=== PATIENT | female | born 2000 | race Caucasian/White ===

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

== ENCOUNTER 2019-03-25 01:22 | Emergency (ER) | payer OTHER, BC ==
[2019-03-25] MEDS ORDERED: Ketorolac 60 MG/2 ML SDV IM ONE (02:10)
--- NOTE | 2019-03-25 02:15 | EDM.PDOC ---
ED HPI GENERAL MEDICAL PROBLEM - General Chief Complaint: Lower Extremity Injury/Pain Stated Complaint: hip Time Seen by Provider: 03/25/19 02:00 Source of Information: Reports: Patient, RN History Limitations: Reports: No Limitations - History of Present Illness INITIAL COMMENTS - FREE TEXT/NARRATIVE: 19 yo female presents from work due to onset of R hip area pain that began about 1930h Monday evening while trying to move a tank that weighed about 70#. She took ibuprofen 400 mg at the time of the injury. Has increased pain with weight transfer to the R leg while walking. Reports a past hx of bursitis of the R hip. Does not have a local provider. 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, NSAIDS R hip Pain Score (Numeric/FACES): 6 - Related Data Allergies Allergy/AdvReac Type Severity Reaction Status Date / Time No Known Allergies Allergy Verified 03/25/19 01:49 Home Meds: Home Meds Levonorgestrel-Ethin Estradiol [Falmina-28 Tablet] 1 each PO ASDIRECTED [History] Past Medical History - Past Health History Medical/Surgical History: Denies Medical/Surgical History Psychiatric History: Reports: Anxiety, Depression Endocrine/Metabolic History: Reports: Obesity/BMI 30+ - Past Surgical History HEENT Surgical History: Reports: Adenoidectomy, Myringotomy w Tube(s), Oral Surgery, Tonsillectomy Musculoskeletal Surgical History: Reports: ORIF Other Musculoskeletal Surgeries/Procedures:: bone spur removed R foot Social & Family History - Family History Family Medical History: Noncontributory - Tobacco Use Smoking Status *Q: Former Smoker Used Tobacco, but Quit: Yes Month/Year Tobacco Last Used: 2016 - Caffeine Use Caffeine Use: Reports: Coffee, Energy Drinks - Recreational Drug Use Recreational Drug Use: No Review of Systems - Review of Systems Review Of Systems: ROS reveals no pertinent complaints other than HPI. Constitutional: Reports: No Symptoms Musculoskeletal: Reports: Back Pain (R low back/posterior pelvis) Skin: Reports: No Symptoms Neurological: Reports: No Symptoms ED EXAM, GENERAL - Physical Exam Exam: See Below Exam Limited By: No Limitations General Appearance: Alert, WD/WN, No Apparent Distress, Obese Back Exam: Normal Inspection, Other (R SI joint pain, also some pain to the R trochanteric bursa area. ). No: CVA Tenderness (R), CVA Tenderness (L), Decreased Range of Motion, Muscle Spasm, Paraspinal Tenderness, Vertebral Tenderness Extremities: Normal Inspection, Normal Range of Motion, Non-Tender, No Pedal Edema Neurological: Alert, Oriented, CN II-XII Intact, Normal Cognition, No Motor/ Sensory Deficits Psychiatric: Normal Affect, Normal Mood Skin Exam: Warm, Dry, Intact, Normal Color, No Rash Course - Vital Signs Last Recorded V/S: Last Vital Signs Temp 36.8 C 03/25/19 01:45 Pulse 81 03/25/19 01:45 Resp 18 03/25/19 01:45 BP 127/86 03/25/19 01:45 Pulse Ox 100 03/25/19 01:45 - Orders/Labs/Meds Orders: Active Orders 24 hr Category Date Time Status Ketorolac [Toradol] Med 03/25/19 02:10 Once 60 mg IM ONETIME ONE Departure - Departure Time of Disposition: 02:35 Disposition: Home, Self-Care 01 Condition: Fair Clinical Impression: Sacro-iliac pain Bursitis Qualifiers: Bursitis location: hip Hip bursitis location: trochanteric bursitis Laterality : right Qualified Code(s): M70.61 - Trochanteric bursitis, right hip Sacroiliac (ligament) sprain Qualifiers: Encounter type: initial encounter Qualified Code(s): S33.6XXA - Sprain of sacroiliac joint, initial encounter - Discharge Information *PRESCRIPTION DRUG MONITORING PROGRAM REVIEWED*: No *COPY OF PRESCRIPTION DRUG MONITORING REPORT IN PATIENT ROSSANA: No Referrals: PCP,None [Primary Care Provider] - Additional Instructions: Take acetaminophen 1000 mg every 6 hrs as needed for pain relief, next dose after 8:30 am. Take ibuprofen 600 mg every 6 hrs with food as needed for pain relief, next dose after 8:30 am today. Reduce walking to only that which is necessary. Get established with a local provider of your choice for ER follow up as you may need either an injection or physical therapy referral. - My Orders Last 24 Hours: My Active Orders 03/25/19 02:10 Ketorolac [Toradol] 60 mg IM ONETIME ONE - Assessment/Plan Last 24 Hours: My Active Orders 03/25/19 02:10 Ketorolac [Toradol] 60 mg IM ONETIME ONE
[2019-03-25] MEDS ORDERED: Acetaminophen 500 MG Tab PO ONE (02:19)
== END 2019-03-25 02:30 | disposition home or self-care (01) ==
LOC: FB.ED 01:22
DX: S33.6XXA Sprain of sacroiliac joint, initial encounter (principal); M70.61 Trochanteric bursitis, right hip; E66.9 Obesity, unspecified; Z68.41 Body mass index [BMI] 40.0-44.9, adult; Z87.891 Personal history of nicotine dependence; X50.0XXA Overexertion from strenuous movement or load, initial encounter; Y93.89 Activity, other specified
CPT/HCPCS: 96372; 99283; A9270-GY; J1885